=== PATIENT | male | born 1930 | race Caucasian/White ===

== ENCOUNTER 2020-03-12 18:31 | Emergency (ER) | payer OTHER ==
[~2020-03-12] VITALS: Ht 177.8 cm; Wt 77.6 kg
[2020-03-12 20:18] LABS: ABSOLUTE NEUTROPHILS 3.4 thou/uL (1.4-8.2); BASOPHILS 0.8 % (0.0-2.0); EOSINOPHILS 1.5 % (0.0-3.0); HEMATOCRIT 45.5 % (42.0-52.0); HEMOGLOBIN 15.3 gm/dL (14.0-18.0); MCH 31.3 pg (26.0-34.0); MCHC 33.6 g/dL (28.0-37.0); MCV 93.2 fL (80.0-100.0); MONOCYTES 9.8 % (1.0-8.0); PLATELET COUNT 198 thou/uL (150-400); POLYS 66.9 % (36.0-66.0); RBC 4.88 mil/uL (4.50-6.00); RDW 13.5 % (10.5-14.5); WBC 5.1 thou/uL (4.0-11.0)
[2020-03-12 20:30] LABS: URINE BILIRUBIN NEGATIVE (Negative); URINE BLOOD NEGATIVE (Negative); URINE CLARITY CLEAR; URINE COLOR YELLOW; URINE GLUCOSE-RANDOM* NEGATIVE (Negative); URINE KETONES TRACE (Negative); URINE NITRITE-REFLEX NEGATIVE (Negative); URINE PROTEIN (DIPSTICK) NEGATIVE (Negative); URINE SPECIFIC GRAVITY 1.015 (1.005-1.035)
[2020-03-12 20:32] LABS: CALCIUM 9.5 mg/dL (8.5-10.1); CREATININE 1.4 mg/dL (0.7-1.3); POTASSIUM 3.8 mmol/L (3.5-5.1)
[2020-03-12 20:32] LABS: URINE LEUKOCYTES-REFLEX 1+ (Negative)
[2020-03-12 20:35] LABS: ALBUMIN 3.9 g/dL (3.4-5.0); TOTAL BILIRUBIN 0.5 mg/dL (0.2-1.0); TOTAL PROTEIN 7.5 g/dL (6.4-8.2)
[2020-03-12 20:58] LABS: SQUAMOUS 0-3 Few /LPF (0-3)
[2020-03-12 20:59] LABS: BACTERIA-REFLEX 1-9 Few /HPF (None Seen); CASTS None Seen /LPF (None Seen); CRYSTALS None Seen /LPF (None Seen); MUCUS 4-6 Moderate strn/LPF (None Seen); URINE RBC 0-2 Rare /HPF (0-2); URINE WBC-REFLEX 6-15 Few /HPF (0-5)
[2020-03-12] MEDS ORDERED: DEPAKOTE ER250 MG PO (23:12)
[2020-03-12] MEDS ORDERED: ASA81BEC PO (23:12)
[2020-03-12] MEDS ORDERED: CLOPIDOGREL75 MG PO (23:12)
[2020-03-12] MEDS ORDERED: PRAVACHOL40 M1 PO (23:13)
[2020-03-12] MEDS ORDERED: PROTONIX 20 MG20 MG PO (23:14)
[2020-03-12] MEDS ORDERED: METOPROLOL SUCC25 M1 PO (23:15)
[2020-03-13 04:30] VITALS: BP 148/74
--- NOTE | 2020-03-13 07:16 | EKG ---
[place] [address] [facility] [place] [address] ELECTROCARDIOGRAM REPORT Name: HIREN AWAD Room #: SONIA Perera#: [id number] Admission: 03/12/20 Attend Phys: Discharge: 03/13/20 Date of : [birth year] Report #: [id number] [facility] ED Test Date: 2020-03-12 Test Time: 19:03:43 Pat Name: HIREN AWAD Department: Room: Gender: Consulting Manager: HEATHER : 1930 Requested By: Michi Jefferson Order Number: [id number] MD: Uche Beatty Measurements Intervals [place] Rate: 70 P: 30 MN: 233 QRS: 26 QRSD: 99 T: 34 QT: 403 QTc: 435 Interpretive Statements Sinus rhythm Atrial premature complexes Prolonged MN interval Abnormal R-wave progression, early transition No previous ECG available for comparison Electronically Signed On 03-13-2020 7:16:33 UPPER MARKER by Uche Beatty [email or web address] <ELECTRONICALLY SIGNED> By: Uche Beatty MD, [facility] 03/13/20 0716 [id number] Uche Beatty MD, FACC /EPI
== END 2020-03-13 05:24 | disposition still patient (30) ==
LOC: ER 18:31
PROVIDERS: Physician Assistant
DX: F03.90 Unspecified dementia, unspecified severity, without behavioral disturbance, psychotic disturbance, mood disturbance, and anxiety (principal); Z20.828 Contact with and (suspected) exposure to other viral communicable diseases; F22 Delusional disorders; N39.0 Urinary tract infection, site not specified; Z79.82 Long term (current) use of aspirin; Z79.899 Other long term (current) drug therapy

== ENCOUNTER 2020-03-13 05:09 | Inpatient (IN) | payer OTHER ==
[~2020-03-13] VITALS: Ht 175.3 cm; Wt 72.6 kg
[~2020-03-13 05:09] MED LIST: ASA81BEC PO; CLOPIDOGREL75 MG PO; DEPAKOTE ER250 MG PO; METOPROLOL SUCC25 M1 PO; PRAVACHOL40 M1 PO; PROTONIX 20 MG20 MG PO
--- NOTE | 2020-03-13 07:19 | NUR ---
03-13-20 0500 RECEIVED REPORT FROM ED RN CARLOS. PT ARRIVED ON UNIT AT 0515 AAOX1, VSS, RR EVEN AND NONLABORED ON RA. PT LUNGS SOUNDS CLEAR AND HT RR. PT HAS BEEN CALM AND COOPERATIVE. HCP Ana DAMICO NP AND Nanci GO NP CONTACTED AND ORDERS RECEIVED. RETURN CALL FROM DPMICHELINE DE LEON AND RECEIVED CONSENT FOR TREATMENT. PT HX HTN, TIA (NOV 2019), HLD, PACEMAKER, DPOA ALSO REPORTED THAT PT ELOPEMENT WITH AGGRESSION. ZERO S/S OF ACUTE DISTRESS NOTED, PT WILL CONTINUE TO BE MONITOR PER [facility] PROTOCOL.
[2020-03-13 09:19] VITALS: BP 153/73
[2020-03-13 11:04] VITALS: BP 153/73
--- NOTE | 2020-03-13 11:11 | NUR ---
ASSUMED CARE AT 0700 THIS MORNING. PT. UP, DRESSED AND ON THE UNIT. HE IS VERY ANXIOUS TODAY. HE CONTINOUSLY TALKS ABOUT THAT HE HAS NO NEED TO BE HERE AND WANTS TO KNOW IF HE CAN LEAVE AT THIS TIME. HE DENIED BEING UPSET, DEPRESSED, SI/HI, AVH. HE IS BEING COOPERATIVE WITH TAKING HIS MEDICATIONS. HE IS CONTINOUSLY PACEING THE UNIT.
[2020-03-13 20:13] VITALS: BP 130/54
--- NOTE | 2020-03-14 06:23 | NUR ---
Assumed care for patient at start of shift at 1900. Pt resting in bed through out the evening. Pt medication compliant and complaint with assessment. Pt reports he slept well. Pt denied having any pain or discomfort. Denies SI/HI/depression/anxiety. Pt is currently up in dining room watching television. Will continue to monitor forany changes in mood/behavior and safety.
[2020-03-14 09:23] VITALS: BP 106/58
[2020-03-14 09:35] VITALS: BP 106/58
--- NOTE | 2020-03-14 11:39 | NUR ---
1130 RESUMMED CARE FROM OVERNIGHT SHIFT THIS AM, PATIENT IN DAY ROOM QUIET ON COUCH. PATIENT IS ORIENTED TO SELF GUARDED NOT INTERACTING WITH OTHERS. PATIENTS ABDOMEN SOFT ROUND BOWEL SOUNDS PRESENT LUNGS CLEAR; PATIENT COULD NOT TELL ME ABOUT SI/HI/AH/VH DUE TO COGNITIVE DO. PATIENT DID SIT IN GROUP LISTENING TO MUSIC NO BEHAVIORS DISPLAYED. WILL CONTINUE TO MONITOR PATIENT FOR SAFETY AND BEHAVIORS.
--- NOTE | 2020-03-14 17:09 | NUR ---
JOSE was able to complete the assessment with the Pt. Jose was also able to speak to the Pt's DPOA, Екатерина Calixto, . JOSE provided Екатерина with the Pt's 4 digit code. Екатерина stated Pt's tends to be more confused mid morning. Pt has a morning routine and prefers toast, boiled eggs, bananas, and decaf coffee. Екатерина stated that this is important for the Pt and may help Pt reestablish a routine. Екатерина had no other questions or concerns. Jose will continue to follow.
[2020-03-14 19:45] VITALS: BP 144/74
--- NOTE | 2020-03-15 05:21 | NUR ---
Assumed care of pt @ 1900. Pt calm et cooperative this shift. Took medications whole without difficulty. Unable to assess ambulation as pt isolated in room most of shift. VSWNL. Health assessment with no abnormalities noted at present time. Denies SI/HI/AVH at present time. Currently resting in bed with eyes closed. Will continue to monitor per unit protocol.
[2020-03-15 08:19] VITALS: BP 123/56
[2020-03-15 08:40] VITALS: BP 123/56
--- NOTE | 2020-03-15 14:31 | NUR ---
Assumed Pt care at 0700am. Pt was sitting in the day room. Pt is oriented to self. Pt is calm and cooperative. Pt took medication whole without difficulties. Assessment are completed, VSS. Pt ambulates with a steady gait.Pt was mostly sleeping but arousable most part of the day. Pt denies SI/HI, There are no c/o of pain.
[2020-03-15 20:14] VITALS: BP 144/70
--- NOTE | 2020-03-16 05:17 | NUR ---
Assumed care of pt @ 1900. Pt calm et cooperative this shift. Took medications whole without difficulty. Unable to assess ambulation as pt isolated in room most of shift. VSWNL. Health assessment with no abnormalities noted this shift. Denies SI/HI/AVH at present time. Currently resting in bed with eyes closed. Will continue to monitor per unit protocol.
[2020-03-16 08:40] VITALS: BP 156/65
--- NOTE | 2020-03-16 10:45 | NUR ---
Assumed pt care at 0700. Pt was sleeping in his room. Pt came out for breakfast, after which Pt went back to his room to catch a nap.Pt is oriented to self. Assessment completed, there was no abnormal findings at this time. Pt was calm and co-operative with medication administration, Pt took his medication whole without difficulties. There is no sign of SI/HI or distress at this time. There is no c/o of pain. Pt ambulates with a steady gait. Pt daughter called to check on him. Will continue to monitor Pt.
[2020-03-16 19:28] VITALS: BP 136/58
--- NOTE | 2020-03-17 05:48 | NUR ---
Assumed care of pt @ 1900. Pt calm et cooperative this shift. Took medications whole without difficulty. Ambulates the halls ad vandana with steady gait. VSWNL. Health assessment with no abnormalities noted at present time. Denies SI/HI/AVH at present time. Socialized with peers in dayroom until HS. Currently resting in bed with eyes closed. Will continue to monitor per unit protocol.
--- NOTE | 2020-03-17 13:46 | NUR ---
APPEARS UNKEMPT THIS AM ON INITIAL ASSESSMENT. UNSHAVEN,CLOTHING WRINKLED IF HAD BEEN SLEPT IN-HAIR UNCOMBED-OFFERED ASSISTANCE IN SHOWER,SHAVE,CLOTHING CHANGE AND HE STATES "NO I'M LEAVING TOMMOROW AND I'M GOING TO DO ALL THAT WHEN I GET HOME-I'M NOT GOING TO HERE" ABRUPT/GUARDED DURING 1;1 CONVERSATION STATING HE IS HERE "BY MISTAKE" AND IS FRUSTRATED WITH HOSPITILIZATION NOT UNDERSTANDING WHY HE IS HERE. RELUCTANTLY ATTENDED RT GROUP BUT NOTED TO BE ANGRY WITH RT STAFF WHEN SHE TURNED TV OFF FOR AM GROUP TATING "CAN'T YOU GO SOMEWHERE ELSO FOR YOUR GROUP I WANT TO WATCH TV"MINIMAL INTERACTION WITH STAFF OR PEERS-DOES SPEND MAJORITY OF SHIFT IN DAYROOM EITHER WATCHING TV OR READING NEWSPAPER. GAIT STEADY WITHOUT ASSISTVE DEVICES-DENIES SI/SH. NO PSYCHOSIS NOTED OR REPORTED.
[2020-03-17 18:53] VITALS: BP 121/62
--- NOTE | 2020-03-18 02:44 | NUR ---
assumed care approx 1900 evening 03/17. pt lying in bed sleeping at change of shift. pt awoke for hs meds and took without difficulty with water. pt appears to be sleeping soundly with 12 minute rounding. will continue to monitor.
[2020-03-18 09:38] VITALS: BP 111/49
[2020-03-18] MEDS ORDERED: KEFLEX500 M1 PO (13:31)
[2020-03-18] MEDS ORDERED: DEPAKOTE 250MG250 M1 PO (13:32)
[2020-03-18] MEDS ORDERED: DIVALPROEX SOD500 M1 PO (13:32)
--- NOTE | 2020-03-18 14:53 | NUR ---
VALENTIAN contacted the admission department at [facility] and spoke with Chapis. VALENTINA informed that Pt was ready for discharge today. Chapis informed they would need the orders before they could set up transportation. VALENTINA informed that doctor is aware and orders may not be sent until a later time today but it will be prior to discharge. VALENTINA offered to set up transportation through [employer]. Chapis raised her voice yellling " No I won't set up tranportation and you won't set up transportation either". Kaye then got on the phone and started to talk. VALENTINA immlev informed Kaye that the behavior that was just displayed was not appropriate and offered for them to Speak with Lauryn Olsen, [facility] director. Kaye agreed to speak to Lauryn. VALENTINA tranfered phone call to Lauryn and informed her of the situation. d/c set for 03/18/20 @ 1500 to [facility]. VALENTINA faxed the discharge paperwork and nursing notes to the facility
--- NOTE | 2020-03-18 15:18 | NUR ---
VALENTINA contacted Pt's daughter/ DPOA, Екатерина, to inform that Pt would d/c today. Екатерина had not concerns or questions concerning that matter
--- NOTE | 2020-03-18 16:21 | NUR ---
Assumed Pt care at 0700, Pt was in his room resting. Pt was alert and oriented to self. Assessment completed,VSS. Pt was co-operative with medication administration, but he refused to take a shower. Pt denies SI/HI. There was no c/o of pain. At 1455 Pt was discharged to [facility]. He was picked up by [facility] via wheelchair. Report was called to Angel Ly at 1614. He took with him his belongings, D/C PAPERS, MEDICATION LIST AND PACKET.
== END 2020-03-18 14:55 | DRG 884 ==
LOC: SBH 05:09
PROVIDERS: ADMIT Psychiatry & Neurology Psychiatry; ATTEND Psychiatry & Neurology Psychiatry
DX: F03.91 Unspecified dementia, unspecified severity, with behavioral disturbance (principal); N39.0 Urinary tract infection, site not specified; I10 Essential (primary) hypertension; I25.10 Atherosclerotic heart disease of native coronary artery without angina pectoris; F41.9 Anxiety disorder, unspecified; F32.9 Major depressive disorder, single episode, unspecified; E78.5 Hyperlipidemia, unspecified; Z79.899 Other long term (current) drug therapy; Z79.82 Long term (current) use of aspirin; Z86.73 Personal history of transient ischemic attack (TIA), and cerebral infarction without residual deficits; Z95.0 Presence of cardiac pacemaker; Z87.440 Personal history of urinary (tract) infections; Z87.891 Personal history of nicotine dependence; Z79.02 Long term (current) use of antithrombotics/antiplatelets
CPT/HCPCS: 10880